=== PATIENT | female | born 1955 | race Caucasian/White ===

== ENCOUNTER → 2019-12-21 11:42 | Outpatient (POV) | payer BC, SELFPAY ==
[2019-12-21 11:46] VITALS: BMI 25.9
--- NOTE | 2019-12-21 12:07 | [facility].PMCON ---
Assessment and Plan (1) Degenerative joint disease (DJD) of lumbar spine Current visit: Yes Status: Chronic Qualifiers: Spinal osteoarthritis complication: with radiculopathy Qualified Code(s): M47.26 - Other spondylosis with radiculopathy, lumbar region Category: Medical Code(s): M47.816 - Spondylosis without myelopathy or radiculopathy, lumbar region (2) Lumbar radiculopathy Current visit: Yes Status: Chronic Category: Medical Code(s): M54.16 - Radiculopathy, lumbar region - Assessment and plan all Dx Assessment and Plan for all problems:: We will refill her tramadol 50 mg 1 p.o. 6 times a day and gabapentin 3 mg 1 p.o. 3 times daily we will give her 1 month worth of medication. We will call her in for a pill count. Patient will be reassessed in 2 months. She is been instructed to call the office if she has any issues prior to her next appointment. Patient has been prescribed a controlled substance after being counseled on the medication, medication safety, and possible side effects. [facility] report has been obtained and reviewed prior to prescription and found to be appropriate. Opioid contract was reviewed and signed by the patient, and that they have agreed to all of the terms set forth by our compliance program. This encounter was performed as a telemedicine visit via secure 2 way video and audio to minimize risk and transmission of Covid-19. The patient and we understand the limitations of a telemedicine visit including inability to check reflexes, possibly missing subtle findings on physical exam. Alternative options were presented to the patient and the patient elected to proceed with the visit. We specifically discussed risk factors for Covid-19 including age, heart or lung disease, diabetes, immunosuppression and travel. We also discussed that NSAIDs may worsen Covid-19 infection symptoms and that they should not be used to treat Covid-19 symptoms. Patient was also informed that corticosteroids in any form oral or injectable will decrease immune response and may increase risk of Covid-[address] Betst has reviewed this patient's chart and this note and agrees with plan of care. Patient has been instructed to call the office if they have any issues prior to the next appointment. HPI - Data of Consult Consult date: 12/21/19 Requesting Physician: Jyoti Ball APRN Primary Care Provider: Referral Provider, MD - Consult Narrative Reason for consult: Medication refills History of present illness: Ms. Alvarado is a 64 year old female via telehealth for medication refills. Patient is a 64-year-old white female who has low back pain and leg pain particularly down the left leg. She had a lumbar epidural steroid injection back in October. She states she had no relief from that. Patient is currently on tramadol and gabapentin. She has had some inconsistencies with her urine drug screen. We will add her to the pill count list. Patient currently on tramadol 50 mg 1 p.o. 6 times a day and gabapentin 300 mg 1 p.o. 3 times daily. She denies side effects from medication. She rates her pain today 6 out of 10. She is also on tizanidine. [facility] #[id number] reviewed. Patient is a current patient at our [place] location. CC: Jyoti Ball APRN [facility] History I have reviewed the patient's past medical history: Yes *Have you ever received a pneumonia vaccine?: Yes *Have you received a flu vaccine this season?: Yes - *Social History Smoking Status: Current every day smoker Tobacco Type: cigarettes # Packs/Day (cigarettes): 1 Alcohol Intake: never *Occupational Status:: other Housing: house Household Members: other *Travel in the last 8 weeks: None Family Hx:: Unable to obtain Review of Systems - Review of Systems ROS General: no recent weight change, no fever, no sleep disturbances Respiratory: no cough, no shortness of air, no recurring pulmonary infections Cardiovascular/Perip
== END ==
PROVIDERS: Visit Provider Clinical Nurse Specialist Family Health
DX: M47.26 Other spondylosis with radiculopathy, lumbar region (principal); Z76.0 Encounter for issue of repeat prescription
CPT/HCPCS: 99202